=== PATIENT | male | born 1980 | race Caucasian/White ===

== ENCOUNTER 2024-03-26 20:42 | Emergency (ER) | payer OTHER, SELFPAY ==
[2024-03-26 20:44] VITALS: BP 152/94
[2024-03-27 00:10] VITALS: BP 120/76; BMI 22.0
--- NOTE | 2024-03-27 00:35 | ED.GENMED ---
History of Present Illness
<Fredy Ritter MD - Last Filed: 03/27/24 00:37>
General
Chief Complaint: Male Genito-Urinary Symptoms
Source: patient
Exam Limitations: none
Time Seen by Provider: 03/27/24 00:04
Nursing documentation reviewed up to this point in time: agreed with
History of Present Illness
History of Present Illness:
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 Patient was evaluated by urologist, , 2 days ago. During the office
visit, patient states that he received normal bladder scan. Patient has a follow-up appoint with Dr. Buck, as well as an outpatient prescription to obtain CT abdomen pelvis.
Review of Systems
<Fredy Ritter MD - Last Filed: 03/27/24 00:37>
Review of Systems
Allergies reviewed?: Yes
All Other Systems: ROS reviewed and negative except as documented in HPI and ROS
Constitutional: Reports no symptoms; Denies fever
ABD/GI: Reports abdominal pain
: Reports dysuria
Musculoskeletal: Reports no symptoms
Skin: Reports no symptoms
Neurological: Reports no symptoms
Phy Exam
<Fredy Ritter MD - Last Filed: 03/27/24 00:37>
Physical Exam
Physical Exam:
Physical Exam
General: mild painful distress, not acutely ill. afebrile
Head: nc/at. eomo
Neck: supple. no meningeal signs.
Abdomen: normal bowel sounds. not tender.
Neuro: alert and oriented. no focal neurological deficits
Skin: no rash
Psychiatric: well kept. interactive and cooperative
Extremities: no edema. no calf tenderness.
Course
<Fredy Ritter MD - Last Filed: 03/27/24 00:37>
Orders/Labs/Results
Orders:
Orders
03/27/24 00:12
Complete Blood Count/With Diff Urgent
Comprehensive Metabolic Panel Urgent
03/27/24 00:30
CT Abd/pelvis W Iv Cont Urgent
Comment:
Reason For Exam: suprapubic pain with dysuria
Ketorolac [Toradol] 30 mg IV NOW STA
03/27/24 02:41
Urinalysis Reflex To Culture Urgent
Date Specimen was Collected: 03/27/24
Time Specimen was Collected: 02:35
Abnormal Lab Results
03/27/24
00:12
RBC 4.60 L 10^6/uL
(4.70-6.10)
03/27/24 00:12
03/27/24 00:12
Vital Signs
Initial and Last Documented VS:
Initial Vital Signs
Temp Pulse Resp BP Pulse Ox
97.8 F 76 18 152/94 98
03/26/24 20:44 03/26/24 20:44 03/26/24 20:44 03/26/24 20:44 03/26/24 20:44
Last Documented Vital Signs
Temp Pulse Resp BP Pulse Ox
97.8 F 65 16 118/76 98
03/26/24 20:44 03/27/24 03:30 03/27/24 03:30 03/27/24 03:30 03/27/24 03:30
<Ede Moreira, DO - Last Filed: 03/27/24 04:14>
Orders/Labs/Results
Orders:
Orders
03/27/24 00:12
Complete Blood Count/With Diff Urgent
Comprehensive Metabolic Panel Urgent
03/27/24 00:30
CT Abd/pelvis W Iv Cont Urgent
Comment:
Reason For Exam: suprapubic pain with dysuria
Ketorolac [Toradol] 30 mg IV NOW STA
03/27/24 02:41
Urinalysis Reflex To Culture Urgent
Date Specimen was Collected: 03/27/24
Time Specimen was Collected: 02:35
Abnormal Lab Results
03/27/24
00:12
RBC 4.60 L 10^6/uL
(4.70-6.10)
03/27/24 00:12
03/27/24 00:12
Vital Signs
Initial and Last Documented VS:
Initial Vital Signs
Temp Pulse Resp BP Pulse Ox
97.8 F 76 18 152/94 98
03/26/24 20:44 03/26/24 20:44 03/26/24 20:44 03/26/24 20:44 03/26/24 20:44
Last Documented Vital Signs
Temp Pulse Resp BP Pulse Ox
97.8 F 65 16 118/76 98
03/26/24 20:44 03/27/24 03:30 03/27/24 03:30 03/27/24 03:30 03/27/24 03:30
<Ede Moreira DO - Last Filed: 03/27/24 04:14>
*Critical Care Note
Total Time (30-74mins, 75-104mins- exclusive of procedures): Not Applicable
<Ede Moreira DO - Last Filed: 03/27/24 04:14>
Update Note
Update Note:
CT ABDOMEN AND PELVIS WITH IV CONTRAST
Comparison: None
IMPRESSION:
Partially visualized presumed DIE BAKER shunt catheter terminating in the right lower quadrant.
Trace pelvic free fluid. No free air.
No bowel obstruction. No signs of colitis or diverticulitis.
Punctate nonobstructing left renal calculus. The kidneys are otherwise unremarkable.
The gallbladder and pancreas are unremarkable.
Trace gas in the urinary bladder, most commonly incidentally related to recent instrumentation or can be seen with infection.
ED Attending Note
<Fredy Noh, MD - Last Filed: 03/27/24 00:37>
-
Portions of this chart may have been created with voice recognition software.� Occasional wrong word or��sound alike� substitutions may have occurred due to the inherent limitations of voice recognition software.
Discharge Plan
Departure
Patient Disposition: Home (Routine Discharge)
Date of Disposition: 03/27/24
Time of Disposition: 02:13
Patient with high blood pressure during this ER visit?: Yes
Condition: Good
Discharge Problem:
Acute pelvic pain
Instructions: Pelvic Pain (DC), BLOOD PRESSURE
Prescriptions:
New
oxycodone-acetaminophen [Percocet] 5-325 mg Tablet
1 tab PO Q6HPRN PRN (Reason: pain) Qty: 10 0RF
Referrals:
Michael Buck Jr., MD [Active] - Next open appointment
Conrad Perez DO [Family Provider] -
Interventions
Interventions:
*Risk Screen - Suicide Last Done: 03/26/24 20:44
*General Assessment Last Done: 03/27/24 00:10
*Neglect/Abuse Screening Last Done: 03/26/24 20:44
*Nursing Disposition Last Done: 03/27/24 03:30
ED-Male Genitourinary Assessment Last Done: 03/27/24 00:10
Discharge Date and Time
Discharge Date/Time: 03/27/24 03:33
Print Language: IRISH
[2024-03-27] MEDS: TORADOL 30 MG IV (00:42)
[2024-03-27 00:57] LABS: % Basophils 0.8 % (0-2); % Immature Granulocytes 0.2 % (0-0.5); % Lymphocytes 30.9 % (20.5-51.1); % Neutrophils 58.1 % (42.2-75.2); Absolute Eosinophils 0.1 10^3/uL (0-0.7); Absolute Lymphocytes 1.5 10^3/uL (1.2-3.4); Absolute Monocytes 0.4 10^3/uL (0.1-0.6); Absolute Neutrophils 2.9 10^3/uL (1.4-6.5); Hemoglobin 14.1 g/dL (13.0-18.0); Mean Corp Hgb Conc. 35.3 g/dL (33.0-37.0); Mean Corpuscular Hgb 30.7 pg (27.0-31.0); Mean Platelet Volume 9.8 fL (7.4-10.4); Nucleated Red Blood Cells % 0 % (-); Platelet Count 225 10^3/uL (130-400); Red Cell Dist. Width 12.2 % (11.5-14.5)
[2024-03-27 01:10] LABS: ALT (SGPT) 29 U/L (0-50); AST (SGOT) 30 U/L (17-59); Albumin 4.2 g/dl (3.5-5.0); Alkaline Phosphatase 54 U/L (38-126); Blood Urea Nitrogen 19 mg/dl (9-20); Calcium 9.9 mg/dl (8.4-10.2); Carbon Dioxide 28 mmol/L (22-30); Chloride 102 mmol/L (98-107); Estimated Creatinine Clearance 113 ml/min; Glucose 98 mg/dl (70-99); Potassium 4.4 mmol/L (3.5-5.1); Sodium 138 mmol/L (135-145); Total Bilirubin 0.4 mg/dl (0.2-1.3); Total Protein 6.3 g/dl (6.3-8.2); eGFR > 60.00
[2024-03-27 02:52] LABS: Urine Albumin Trace (Neg - Trace); Urine Bilirubin Negative (Negative); Urine Character Clear (Clear); Urine Color Yellow; Urine Glucose Negative (Negative); Urine Ketone Negative (Negative); Urine Leukocyte Negative (Negative); Urine Nitrite Negative (Negative); Urine Occult Blood Negative (Negative); Urine Urobilinogen Negative (Neg - 1+)
[2024-03-27 03:30] VITALS: BP 118/76
== END 2024-03-27 03:33 | disposition home or self-care (01) ==
LOC: EMR 20:42
PROVIDERS: EMERGENCY PHYSICIAN Emergency Medicine; FAMILY PHYSICIAN Family Medicine
DX: R10.2 Pelvic and perineal pain (principal); R30.0 Dysuria; N20.0 Calculus of kidney; R03.0 Elevated blood-pressure reading, without diagnosis of hypertension; G43.909 Migraine, unspecified, not intractable, without status migrainosus; Z98.2 Presence of cerebrospinal fluid drainage device; Z98.890 Other specified postprocedural states; Z86.16 Personal history of COVID-19
CPT/HCPCS: 99285; 96374; 74177; 80053; 81003; 85025; Q9967